=== PATIENT | female | born 1935 | race Caucasian/White ===

== ENCOUNTER 2020-04-12 10:58 | Emergency (ER) | payer MEDICARE, OTHER ==
[~2020-04-12] VITALS: Ht 152.4 cm; Wt 63.5 kg
[2020-04-12] MEDS ORDERED: SWABABLE VALVE TRANSFER SET EA MC ONE (11:22)
[2020-04-12] MEDS ORDERED: IOHEXOL 300MG/ML 100 ML INFUS..BTL ONE (11:23)
[2020-04-12] MEDS ORDERED: IV NORMAL SALINE 250 ML IV ONE (11:23)
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
--- NOTE | 2020-04-12 12:01 | NUR ---
Started IV 20g left hand.
[2020-04-12] MEDS: IV NORMAL SALINE 1000 ML BAG IV ONE (12:10)
[2020-04-12 12:16] LABS: BASOPHILS % (AUTO) 0.5 % (0.0-2.0); EOSINOPHILS # (AUTO) 0.1 K/uL (0.0-0.7); HEMATOCRIT 30.3 % (31.2-41.9); HEMOGLOBIN 9.6 g/dL (10.9-14.3); LYMPHOCYTES # (AUTO) 0.6 K/uL (20.0-40.0); LYMPHOCYTES % (AUTO) 10.3 % (20.5-51.5); MEAN CORPUSCULAR HEMOGLOBIN 27.2 uug (24.7-32.8); MEAN CORPUSCULAR HGB CONC 32 g/dL (32.3-35.6); MEAN CORPUSCULAR VOLUME 85.9 fL (75.5-95.3); MONOCYTES # (AUTO) 0.6 K/uL (2.0-10.0); MONOCYTES % (AUTO) 9.4 % (0.0-11.0); NEUTROPHILS # (AUTO) 4.9 K/uL (1.8-8.9); NEUTROPHILS % (AUTO) 78.8 % (38.5-71.5); PLATELET COUNT (AUTO) 126 K/uL (179-408); RED BLOOD CELL COUNT(AUTO) 3.53 MIL/uL (3.63-4.92); WHITE BLOOD COUNT (AUTO) 6.3 K/uL (3.8-11.8)
[2020-04-12 12:22] LABS: CARBON DIOXIDE 25 mmol/L (21-32); CHLORIDE 107 mmol/L (98-107); CREATININE 1.9 mg/dL (0.6-1.3); GLUCOSE 123 mg/dL (74-106); POTASSIUM 3.9 mmol/L (3.5-5.1); UREA NITROGEN, BLOOD 36 mg/dL (7-18)
[2020-04-12 12:28] LABS: ALANINE AMINOTRANSFERASE 27 U/L (14-59); ALKALINE PHOSPHATASE 240 U/L (50-136); ASPARTATE AMINOTRANSFERASE 28 U/L (15-37); BILIRUBIN,DIRECT 0.1 mg/dL (0.0-0.2); BILIRUBIN,TOTAL 0.5 mg/dL (0.2-1.0); TOTAL PROTEIN, SERUM 6.2 g/dL (6.4-8.2)
[2020-04-12] MEDS ORDERED: ACETAMINOPHEN 325 MG TABLET ONE (12:42)
[2020-04-12] MEDS: ACETAMINOPHEN 325 MG TABLET PO ONE (13:02)
--- NOTE | 2020-04-12 14:16 | NUR ---
SON: Lex [phone]
--- NOTE | 2020-04-12 14:59 | NUR ---
Removed IV intact, site okay, bandaged. Gave pt and son d/c instructions, verbalized understanding.
== END 2020-04-12 15:08 | disposition home or self-care (01) ==
LOC: ER 10:58
DX: R07.89 Other chest pain (principal); S60.221A Contusion of right hand, initial encounter; V43.52XA Car driver injured in collision with other type car in traffic accident, initial encounter; Y92.414 Local residential or business street as the place of occurrence of the external cause; I11.9 Hypertensive heart disease without heart failure; J34.1 Cyst and mucocele of nose and nasal sinus; M50.30 Other cervical disc degeneration, unspecified cervical region; M48.02 Spinal stenosis, cervical region; K44.9 Diaphragmatic hernia without obstruction or gangrene; I31.3 Pericardial effusion (noninflammatory); J90 Pleural effusion, not elsewhere classified; M85.841 Other specified disorders of bone density and structure, right hand; N28.9 Disorder of kidney and ureter, unspecified; D69.6 Thrombocytopenia, unspecified; D64.9 Anemia, unspecified; I44.4 Left anterior fascicular block
CPT/HCPCS: 36415; 70450; 71260; 72125; 73130; 74177; 80048; 80076; 85025; 85730; 93005; 96360; 96361; 99285; Q9967; A4663; J7030; J7050